=== PATIENT | female | born 1970 | race Hispanic/Latino ===

== ENCOUNTER 2017-06-22 13:21 | Emergency (ER) | payer MEDICAID ==
[2017-06-22 13:36] VITALS: BP 115/64
--- NOTE | 2017-06-22 14:44 | EDM.PDOC ---
ED HPI GENERAL MEDICAL PROBLEM - General Chief Complaint: General Stated Complaint: SICK, BAD ALLERGIES Time Seen by Provider: 06/22/17 14:30 Source of Information: Reports: Patient History Limitations: Reports: No Limitations - History of Present Illness INITIAL COMMENTS - FREE TEXT/NARRATIVE: This 47 yo female patient reports to the ED with a 4-5 day history of head congestion, a cough and nasal drainage. The patient reports she has not been taking any allergy medications, but has a history of allergies to cut grass. Onset: Gradual Duration: Day(s):, Constant Location: Reports: Generalized Quality: Reports: Dull Severity: Moderate Improves with: Reports: None Worsens with: Reports: None Associated Symptoms: Reports: No Other Symptoms - Related Data Allergies Allergy/AdvReac Type Severity Reaction Status Date / Time grass pollen-perennial rye, Allergy Swelling Verified 06/22/17 13:49 standar morphine Allergy Itching Verified 06/22/17 13:49 phenol [From Chloraseptic] Allergy Difficulty Verified 06/22/17 14:35 Breathing Home Meds: Home Meds . [No Known Home Meds] 06/22/17 [History] Past Medical History HEENT History: Reports: Allergic Rhinitis, Hard of Hearing, Sinusitis Respiratory History: Reports: Asthma Gastrointestinal History: Reports: Gastritis Musculoskeletal History: Reports: Arthritis, Fracture Other Musculoskeletal History: left thumb, fracture right leg, rupured tendon left hand, two bones filled in left hand.Right hand severe median neuropathy Neurological History: Reports: Migraines Dermatologic History: Reports: None - Past Surgical History Female Surgical History: Reports: Section, Other (See Below) Other Female Surgeries/Procedures: reduced fat tissue from breast (left) Social & Family History - Family History Family Medical History: Noncontributory - Tobacco Use Smoking Status *Q: Current Every Day Smoker Years of Tobacco use: 30 Packs/Tins Daily: 1 - Caffeine Use Caffeine Use: Reports: Coffee, Soda - Recreational Drug Use Recreational Drug Use: No ED ROS GENERAL - Review of Systems Review Of Systems: ROS reveals no pertinent complaints other than HPI. ED EXAM, GENERAL - Physical Exam Exam: See Below Exam Limited By: No Limitations General Appearance: Alert, WD/WN, Mild Distress, Obese Eye Exam: Bilateral Eye: EOMI, Normal Inspection, PERRL Ears: Normal External Exam, Normal Canal, Hearing Grossly Normal, Normal TMs Nose: Normal Inspection, Normal Mucosa, No Blood, Clear Rhinorrhea Throat/Mouth: Normal Inspection, Normal Lips, Normal Teeth, Normal Gums, Normal Oropharynx, Normal Voice, No Airway Compromise Head: Atraumatic, Normocephalic Neck: Normal Inspection, Supple, Non-Tender, Full Range of Motion Respiratory/Chest: No Respiratory Distress, Lungs Clear, Normal Breath Sounds, No Accessory Muscle Use, Chest Non-Tender Cardiovascular: Normal Peripheral Pulses, Regular Rate, Rhythm, No Edema, No Gallop, No JVD, No Murmur, No Rub GI/Abdominal: Normal Bowel Sounds, Soft, Non-Tender, No Organomegaly, No Distention, No Abnormal Bruit, No Mass (Female) Exam: Deferred Rectal (Female) Exam: Deferred Back Exam: Normal Inspection, Full Range of Motion, NT Extremities: Normal Inspection, Normal Range of Motion, Non-Tender, Normal Capillary Refill, No Pedal Edema Neurological: Alert, Oriented, CN II-XII Intact, Normal Cognition, Normal Gait, Normal Reflexes, No Motor/Sensory Deficits Psychiatric: Normal Affect, Normal Mood Skin Exam: Warm, Dry, Intact, Normal Color, No Rash Lymphatic: No Adenopathy Course - Vital Signs Last Recorded V/S: Last Vital Signs Temp 36.3 C 06/22/17 13:35 Pulse 73 06/22/17 13:35 Resp 18 06/22/17 13:35 BP 115/64 06/22/17 13:35 Pulse Ox 96 06/22/17 13:35 Departure - Departure Time of Disposition: 14:42 Disposition: Home, Self-Care 01 Condition: Fair Clinical Impression: Environmental and seasonal allergies - Discharge Information Instructions: Allergies, [id number] Forms: ED Department Discharge Care Plan Goals: The patient was advised of the examination results during the visit. The patient was encouraged to take [id number] Claritin as directed. If the patient has any additional symptoms or concerns, the patient should be seen by her primary care facility for continued evaluation and management.
== END 2017-06-22 15:03 | disposition home or self-care (01) ==
LOC: DL.ED 13:21
DX: J30.2 Other seasonal allergic rhinitis (principal); J45.909 Unspecified asthma, uncomplicated; F17.210 Nicotine dependence, cigarettes, uncomplicated; Z98.890 Other specified postprocedural states; Z88.5 Allergy status to narcotic agent; Z88.8 Allergy status to other drugs, medicaments and biological substances; Z91.048 Other nonmedicinal substance allergy status
CPT/HCPCS: 99283

== ENCOUNTER 2018-02-05 15:09 | Emergency (ER) | payer MEDICAID ==
[2018-02-05 15:34] VITALS: BP 114/68
--- NOTE | 2018-02-05 15:37 | EDM.PDOC ---
ED HPI GENERAL MEDICAL PROBLEM - General Chief Complaint: ENT Problem Stated Complaint: EAR PAINS [id number] Time Seen by Provider: 02/05/18 15:30 Source of Information: Reports: Patient History Limitations: Reports: No Limitations - History of Present Illness INITIAL COMMENTS - FREE TEXT/NARRATIVE: This 47 yo female patient reports to the ED with increased pain in her left ear radiating down into her jaw. The patient reports chronic ear problems. The patient has ruptured both ear drums, but the left has healed. The patient reports some discomfort in the right ear, but more pain in the left ear and left jaw. Onset Date: 02/04/18 Duration: Constant, Getting Worse Location: Reports: Head Quality: Reports: Ache, Sharp Severity: Moderate Improves with: Reports: None Worsens with: Reports: None Associated Symptoms: Reports: No Other Symptoms - Related Data Allergies Allergy/AdvReac Type Severity Reaction Status Date / Time grass pollen-perennial rye, Allergy Swelling Verified 06/22/17 13:49 standar morphine Allergy Itching Verified 06/22/17 13:49 phenol [From Chloraseptic] Allergy Difficulty Verified 06/22/17 14:35 Breathing Home Meds: Home Meds . [No Known Home Meds] 06/22/17 [History] Past Medical History HEENT History: Reports: Allergic Rhinitis, Hard of Hearing, Sinusitis Respiratory History: Reports: Asthma Gastrointestinal History: Reports: Gastritis Musculoskeletal History: Reports: Arthritis, Fracture Other Musculoskeletal History: left thumb, fracture right leg, rupured tendon left hand, two bones filled in left hand.Right hand severe median neuropathy Neurological History: Reports: Migraines Dermatologic History: Reports: None - Past Surgical History Female Surgical History: Reports: Section, Other (See Below) Other Female Surgeries/Procedures: reduced fat tissue from breast (left) Social & Family History - Family History Family Medical History: Noncontributory - Tobacco Use Smoking Status *Q: Current Every Day Smoker Years of Tobacco use: 30 Packs/Tins Daily: 1 - Caffeine Use Caffeine Use: Reports: Coffee, Soda - Recreational Drug Use Recreational Drug Use: No ED ROS ENT - Review of Systems Review Of Systems: ROS reveals no pertinent complaints other than HPI. ED EXAM, ENT - Physical Exam Exam: See Below Exam Limited By: No Limitations General Appearance: Alert, WD/WN, Moderate Distress Eye Exam: Bilateral Eye: EOMI, Normal Inspection, PERRL Ears: Normal External Exam, Hearing Grossly Normal, Canal Swelling (right), TM Perforation (right (chronic)), Other (left TM retracted) Nose: Normal Inspection, Normal Mucousa, No Blood, Clear Rhinorrhea Mouth/Throat: Normal Inspection, Normal Gums, Normal Lips, Normal Oropharynx, Normal Teeth Head: Atraumatic, Normocephalic Neck: Normal Inspection, Supple, Non-Tender, Full Range of Motion Respiratory/Chest: No Respiratory Distress, Lungs Clear, Normal Breath Sounds, No Accessory Muscle Use, Chest Non-Tender Cardiovascular: Normal Peripheral Pulses, Regular Rate, Rhythm, No Edema, No Gallop, No JVD, No Murmur, No Rub GI/Abdominal: Normal Bowel Sounds, Soft, Non-Tender, No Organomegaly, No Distention, No Abnormal Bruit, No Mass (Female) Exam: Deferred Rectal (Female) Exam: Deferred Extremities: Normal Inspection, Normal Range of Motion, Non-Tender, No Pedal Edema, Normal Capillary Refill Neurological: Alert, Oriented, CN II-XII Intact, Normal Cognition, Normal Gait, Normal Reflexes, No Motor/Sensory Deficits Psychiatric: Normal Affect, Normal Mood Skin: Warm, Dry, Intact, Normal Color, No Rash Lymphatic: No Adenopathy Course - Vital Signs Last Recorded V/S: Last Vital Signs Temp 36.8 C 02/05/18 15:24 Pulse 90 02/05/18 15:24 Resp 20 02/05/18 15:24 BP 114/68 02/05/18 15:24 Pulse Ox 97 02/05/18 15:24 Departure - Departure Time of Disposition: 15:37 Disposition: Home, Self-Care 01 Condition: Fair Clinical Impression: Otitis media Qualifiers: Otitis media type: serous Chronicity: acute Laterality: left Recurrence: recurrent Qualified Code(s): H65.05 - Acute serous otitis media, recurrent, left ear - Discharge Information Instructions: Otitis Media, Adult, [id number] Forms: ED Department Discharge Care Plan Goals: The patient was advised of the examination results during the visit. The patient was given a script for Omnicef (300 mg) to take 1 by mouth 2 times per day for 10 days. If the patient has any additional symptoms or concerns, the patient should follow-up with her primary care facility or return to the emergency department.
== END 2018-02-05 15:44 | disposition home or self-care (01) ==
LOC: DL.ED 15:09
DX: H65.05 Acute serous otitis media, recurrent, left ear (principal); F17.210 Nicotine dependence, cigarettes, uncomplicated; Z88.5 Allergy status to narcotic agent
CPT/HCPCS: 99282

== ENCOUNTER 2022-12-19 17:44 | Emergency (ER) | payer MEDICARE, MEDICAID ==
[2022-12-19 18:15] VITALS: BP 161/90; PULSE 81
== END 2022-12-19 18:20 | disposition home or self-care (01) ==
LOC: DL.ED 17:44
DX: M23.92 Unspecified internal derangement of left knee (principal); Z88.5 Allergy status to narcotic agent; Z91.048 Other nonmedicinal substance allergy status; Z88.8 Allergy status to other drugs, medicaments and biological substances
CPT/HCPCS: 73564-LT; 99283